=== PATIENT | male | born 1980 | race Caucasian/White ===

== ENCOUNTER → 2020-04-07 | Outpatient (CLI) | payer OTHER ==
--- NOTE | 2020-04-07 09:30 | XR ---
EXAMINATION TYPE: XR lumbosacral spine min 4V DATE OF EXAM: 04/07/2020 CLINICAL HISTORY: Chronic low back pain into left hip. TECHNIQUE: Frontal, lateral, and oblique images of the lumbar spine are obtained. COMPARISON: None FINDINGS: There are 5 lumbar type vertebral bodies identified assuming hypoplastic bilateral T12 rib s. The lumbar spine shows satisfactory alignment without evidence of acute fracture or dislocation. Vertebral body heights and disk space heights are within normal limits. Mild multilevel anterior sp urring. The oblique images appear within normal limits. Overlying rounded densities changed position on the images obtained. Visualized portion of sacroiliac joints within normal limits. IMPRESSION: As above.
[2020-04-07 15:29] LABS: Basophils # (A) 0.03 X 10*3/uL (0.00-0.10); Basophils % (A) 0.6 %; Eosinophils % (A) 3.9 %; HCT 45.8 % (39.6-50.0); HGB 15.1 g/dL (13.0-17.0); Lymphocytes # (A) 2.06 X 10*3/uL (0.90-5.00); Lymphocytes % (A) 39.7 %; MCH 29.5 pg (27.0-32.0); MCV 89.5 fL (80.0-97.0); Mean Platelet Volume 10.6 fL (9.5-12.2); Monocytes # (A) 0.47 X 10*3/uL (0.20-1.00); Monocytes % (A) 9.1 %; Neutrophils # (A) 2.42 X 10*3/uL (1.80-7.70); Neutrophils % (A) 46.5 %; Platelet Count 217 X 10*3/uL (140-440); RBC 5.12 X 10*6/uL (4.40-5.60); RDW 11.4 % (11.5-14.5); WBC 5.19 X 10*3/uL (4.50-10.00)
[2020-04-07 15:49] LABS: African American GFR (CKD) 108.6 (60.0-200.0); Albumin 4.9 g/dL (3.80-4.90); Albumin/Globulin Ratio 2.72 (1.60-3.17); Anion Gap 6.4 mmol/L (4.00-12.00); Calcium 9.6 mg/dL (8.7-10.3); Carbon Dioxide 28.6 mmol/L (21.6-31.8); Chol/HDL Ratio 3.64; Globulin 1.8 g/dL (1.6-3.3); LDL Cholesterol,Calculated 111.4 mg/dL (0.0-131.0); Non-African American GFR(CKD) 93.7 (60.0-200.0); Potassium 4.5 mmol/L (3.5-5.5); Total Bilirubin 0.7 mg/dL (0.2-1.2); Total Protein 6.7 g/dL (6.2-8.2); VLDL Calculation 41.6 mg/dL (5.00-40.00)
[2020-04-07 15:57] LABS: Prostate Specific Antigen 0.5 ng/mL (0.0-2.5)
== END | disposition home or self-care (01) ==
LOC: LABWHC1 08:20
PROVIDERS: ATTEND Internal Medicine
DX: M54.32 Sciatica, left side (principal); Z00.01 Encounter for general adult medical examination with abnormal findings; N40.0 Benign prostatic hyperplasia without lower urinary tract symptoms; Z13.220 Encounter for screening for lipoid disorders
CPT/HCPCS: 36415; 72110; 80053; 80061; 84153; 85025

== ENCOUNTER → 2020-06-10 | Outpatient (CLI) | payer OTHER ==
--- NOTE | 2020-06-11 03:29 | MR ---
EXAMINATION TYPE: MR pelvis wo/w con DATE OF EXAM: 06/10/2020 COMPARISON: None HISTORY: Hip and pelvis pain CONTRAST: Standard multiplanar, multisequence MRI departmental protocol utilizing 9.0 mL intravenous Gadavist g adolinium contrast. The pelvic ring is intact. Sacroiliac joints appear normal. I see no evidence of a pelvic mass. Bladd er distends smoothly. Prostate is symmetric. There is no evidence of free fluid in the pelvis. The proximal femurs appear intact. There is 6 mm rounded fluid focus at the left acetabulum consisten t with a degenerative acetabular cyst. There is no evidence of avascular necrosis. There is some enha ncement around the left hip joint. There appears to be slight increased joint fluid on the left side compared to the right. The contrast images show no pathologic enhancement. There is no evidence of a soft tissue mass. IMPRESSION: No evidence of avascular necrosis. There is some arthritic changes in the left hip joint with degener ative cyst formation in the acetabulum and slight increased joint fluid. This could be some synovitis .
== END | disposition home or self-care (01) ==
LOC: RADMRIMAIN 14:31
PROVIDERS: ATTEND Orthopaedic Surgery
DX: R10.2 Pelvic and perineal pain (principal); M16.12 Unilateral primary osteoarthritis, left hip
CPT/HCPCS: 72197; A9585

== ENCOUNTER 2020-07-07 09:17 | Day surgery (SDC) | payer OTHER ==
[2020-07-03 11:09] VITALS: BMI 28.7
[2020-07-07 09:33] VITALS: TEMP 98
[2020-07-07] MEDS ORDERED: LIDOCAINE 1% (10MG/ML) FOR IV START INTRADERMA ONE (09:41)
[2020-07-07] MEDS ORDERED: LACTATED RINGERS 1,000 ML IV ONE (09:41)
[2020-07-07] MEDS ORDERED: IOPAMIDOL M200 10 ML VIAL ONE (09:57)
[2020-07-07] MEDS ORDERED: ROPIVACAINE 5MG/ML 20ML VIAL ONE (09:57)
[2020-07-07] MEDS ORDERED: MIDAZOLAM 2 MG/2 ML VIAL ONE (09:57)
[2020-07-07] MEDS ORDERED: TRIAMCINOLONE ACETONIDE 40 MG/ML 1 ML VIAL ONE (09:57)
[2020-07-07] MEDS ORDERED: fentaNYL (PF) 50 MCG/ML 2 ML AMP ONE (09:57)
--- NOTE | 2020-07-07 10:09 | P.PCN ---
Date of Procedure: 07/07/20 Description of Procedure: Pre- and Post-operative Diagnosis: Left-sided Greater Trochanteric Bursitis Procedure: Left-sided Greater Trochanteric Bursa injection under fluoroscopic guidance Surgeon: Dr.Rudram Kingston Anesthesia: Local: 1% Lidocaine, IV sedation : none Complications: none Indications for Procedure: Patient had a history of greater trochanteric bursitis. Tried conservative therapy with minimal response. Came here for intervention procedure. Procedure and Findings: The patient was seen and examined. The written informed consent was obtained after explaining the risks, benefits and alternatives of the procedure to the patient. Patient agreed to proceed for the procedure signed the informed consent. IV started for intraoperative sedation. The patient was brought to the procedure room and was placed in supine position on the operating table. The anesthesia was started as mentioned above and monitoring was done with noninvasive blood pressure cuff, EKG and pulse oximetry. The skin preparation was done with ChloraPrep 1, and draping was done in usual sterile fashion. Sterile technique was observed throughout the procedure. Using fluoroscope in the AP view, the greater trochanter was identified. The middle of the greater trochanter was targeted for needle placement. 3 ml of 1% Lidocaine was injected with a 25 gauge needle to achieve adequate local anesthesia of the skin and subcutaneous tissue. A 22 gauge 3.5 inch needle was introduced and advanced into the target area under direct fluoroscopic guidance. A bony contact was felt and the needle was withdrawn for about two millimeters. A negative aspiration was confirmed. A total of 5ml solution containing Kenalog 40 mg and 4 ml of 0.5% preservative-free ropivacaine was injected slowly. The needle was removed intact, area was cleaned and bandage was applied. The patient tolerated the procedure very well. Additional comments: none Disposition : The patient was transferred to the recovery room and remained stable until discharged home. The patient was given detailed discharge instructions for infection, bleeding, increased pain at the injection site, and was advised to seek immediate medical attention should significant side effects develop. Patient was routinely examined by RN before discharging home. The patient will be followed up with [facility] within 4 weeks.
[2020-07-07] MEDS ORDERED: LACTATED RINGERS 1,000 ML IV SCH (10:15)
[2020-07-07] MEDS ORDERED: IV FLUID CONTINUATION 1,000 ML IV ONE ×2 (10:15)
--- NOTE | 2020-07-07 10:22 | FL ---
EXAMINATION TYPE: FL guided pain mgmt statistic DATE OF EXAM: 07/07/2020 HISTORY: Fluoroscopy time 2 seconds of fluoroscopy provided. IMPRESSION: 1. Fluoroscopy time.
[2020-07-07 10:47] VITALS: BP 105/70; PULSE 75; RESP 18
== END 2020-07-07 10:49 | disposition home or self-care (01) ==
LOC: ORPAIN 09:17
DX: M70.62 Trochanteric bursitis, left hip (principal)
CPT/HCPCS: 77002; 20610; J2250; J3301; J3010; Q9966; J2795

== ENCOUNTER → 2020-08-05 | Outpatient (CLI) | payer OTHER ==
[2020-08-05 09:13] VITALS: BP 132/82; PULSE 85; RESP 18; TEMP 98.2
--- NOTE | 2020-08-05 09:48 | P.PN ---
Subjective Progress Note Date: 08/05/20 This is a follow-up visit for this 40 years old male with a chronic history of the left hip pain, he is diagnosed with arthritis of the left hip joint and degenerative cyst formation in the acetabulum, status post left hip injection, if feels some benefit after the injection and he continued to have some left hip joint especially with active movement, and with abduction and adduction of the left hip, he denies any motor or sensory deficit to denies any fever or night sweats, denies any numbness or tingling sensation in the lower extremity Objective - Vital Signs Vital signs: Vital Signs Temp 98.2 F 08/05/20 09:10 Pulse 85 08/05/20 09:10 Resp 18 08/05/20 09:10 BP 132/82 08/05/20 09:10 Pulse Ox 97 08/05/20 09:10 - Exam Physical Examinations : -Constitutiona : Cooperative , not in acute distress . -HEENT : nech : supple , no Lymphadenopathy , normal thyroid size . : eyes : no ptosis , no icterus, no photophobia . - neurologic : Cranial nerve II to XII intact , no focal neurological deffecit . -psychatric : alert , oriented X 3 , appropriate affect , intact judgment and insight . -Lymphatic : no Lymphadenopathy . - musculoskeltal : Lumber spine moter stegnth lower extremities ,thigh and legs 5/5 Right side , 5/5 Left side left hip= external abduction and adduction of the left hip associated with pain. Normal motor strength and normal sensation in the lower extremities MRI of the pelvis arthritic changes of the left hip joint, no avascular necrosis Assessment and Plan Plan: Assessment and plan=1-left hip arthralgia. 2-left hip arthritis Patient could benefit from left hip joints intra-articular steroid injection. - PQRS measures = - Patient's medications are documented in the chart. -Tobacco use is negative and counseling.Given. -Patient's has not received pneumococcal vaccine. -Advanced care planning discussed, patient not eligible. -Opiate contract not signed. -Pain positive and follow-up visit/procedure is scheduled. -Patient's blood pressure measured [ 132/82] , and documented in the record ,and patient will follow up with the primary care. -Patient's weight was measured and body mass index [ ] above the,normal limits and counseling was done. and patient instructed to follow-up with the primary care physician. -Patient was not identified as an unhealthy alcohol user Time with Patient: Less than 30
== END ==
LOC: PNWHC3 09:02
PROVIDERS: ATTEND Specialist
DX: M16.12 Unilateral primary osteoarthritis, left hip (principal)
CPT/HCPCS: 99211

== ENCOUNTER → 2021-12-31 | Outpatient (CLI) | payer OTHER ==
[2021-12-31 17:32] LABS: Basophils # (A) 0.04 X 10*3/uL (0.00-0.10); Basophils % (A) 0.8 %; Eosinophils # (A) 0.29 X 10*3/uL (0.04-0.35); HCT 45.3 % (39.6-50.0); HGB 15.3 g/dL (13.0-17.0); Immature Grans, Automated 0 %; Lymphocytes # (A) 2.23 X 10*3/uL (0.90-5.00); Lymphocytes % (A) 45.9 %; MCH 30.7 pg (27.0-32.0); MCHC 33.8 g/dL (32.0-37.0); Mean Platelet Volume 10.4 fL (9.5-12.2); Monocytes # (A) 0.42 X 10*3/uL (0.20-1.00); Monocytes % (A) 8.6 %; NRBC Per 100 WBC 0 /100 WBCS (0.0-0.0); Neutrophils # (A) 1.88 X 10*3/uL (1.80-7.70); Neutrophils % (A) 38.7 %; Platelet Count 208 X 10*3/uL (140-440); RBC 4.98 X 10*6/uL (4.40-5.60); RDW 11.7 % (11.5-14.5); WBC 4.86 X 10*3/uL (4.50-10.00)
[2021-12-31 17:43] LABS: African American GFR (CKD) 109.8 (60.0-200.0); Anion Gap 10.5 mmol/L (10.00-18.00); BUN/Creat Ratio 14.29 Ratio (12.00-20.00); Calcium 9.3 mg/dL (8.7-10.3); Carbon Dioxide 24.9 mmol/L (20.0-27.5); Non-African American GFR(CKD) 94.7 (60.0-200.0); Potassium 4.2 mmol/L (3.5-5.5)
== END | disposition home or self-care (01) ==
LOC: LABWHC1 09:43
PROVIDERS: ATTEND Orthopaedic Surgery
DX: Z01.812 Encounter for preprocedural laboratory examination (principal); M12.9 Arthropathy, unspecified
CPT/HCPCS: 36415; 80048; 85025; 87070

== ENCOUNTER 2023-09-13 09:33 | Day surgery (SDC) | payer OTHER ==
[2023-09-13] MEDS: IV FLUID CONTINUATION 1,000 ML IV ONE (10:04)
[2023-09-13 10:08] VITALS: TEMP 98.3
[2023-09-13] MEDS: LACTATED RINGERS 1,000 ML IV SCH (10:20)
[2023-09-13] MEDS ORDERED: PROPOFOL 10 MG/ML 20 ML VIAL IV ONE (11:20)
--- NOTE | 2023-09-13 11:39 | P.PCN ---
Date of Procedure: 09/13/23 Procedure(s) Performed: BRIEF HISTORY: Patient is a 43-year-old pleasant white male scheduled for an elective colonoscopy as a part of evaluation of change in bowel habits for the last 5 days duration. PROCEDURE PERFORMED: Colonoscopy. PREOPERATIVE DIAGNOSIS: Change in bowel habits. IV sedation per Anesthesia. PROCEDURE: After informed consent was obtained, the patient, was brought into the endoscopy unit. IV sedation was administered by Anesthesia under continuous monitoring. Digital rectal examination was normal. Initially the Olympus CF-160 flexible video colonoscope was then inserted in the rectum, gradually advanced into the cecum without any difficulty. Careful examination was performed as the scope was gradually being withdrawn. Ileocecal valve and the appendiceal orifice were visualized and appeared normal. Prep was excellent. Mucosa of the cecum, ascending colon, transverse colon, descending colon, sigmoid colon, and rectum appeared normal. Retroflexion was performed in the rectum and no lesions were seen. The patient tolerated the procedure well. IMPRESSION: Normal-appearing colon from rectum to cecum with no evidence of colorectal neoplasia. RECOMMENDATIONS: Findings of this examination were discussed with the patient as well as his family. He was advised to have repeat screening colonoscopy in 10 years..
[2023-09-13 12:02] VITALS: BP 117/73; PULSE 77; RESP 17
== END 2023-09-13 12:03 | disposition home or self-care (01) ==
LOC: ORWHC2ENDO 09:33
PROVIDERS: ATTEND Internal Medicine Gastroenterology
DX: R19.4 Change in bowel habit (principal); E78.5 Hyperlipidemia, unspecified; Z79.899 Other long term (current) drug therapy; Z98.890 Other specified postprocedural states
CPT/HCPCS: 45378; J2704